=== PATIENT | male | born 1960 | race Caucasian/White ===

== ENCOUNTER → 2018-02-04 | Outpatient (CLI) | payer SELFPAY | LOC: US 12:13 | PROVIDERS: ATTEND Nurse Practitioner | DX: Z02.9 Encounter for administrative examinations, unspecified (principal) ==

== ENCOUNTER 2018-02-05 11:46 | Outpatient (RCR) | payer OTHER ==
[2018-02-05 12:14] LABS: INR 1.03
--- NOTE | 2018-02-07 14:58 | RADIOLOGY IMAGING REPORT ---
[place]AC[place] [facility] [place] NAME: Terrence Mcconnell : 1960 MR: [id number] V: [id number] EXAM DATE: ORDERING PHYSICIAN: BRENNAN PEDRAZA TECHNOLOGIST: Location: [facility] - [place] Patient: Terrence Mcconnell : 1960 Visit/Account:[id number] Date of Sevice: 02/07/2018 Examination: Ultrasound-guided left neck mass fine needle aspiration HISTORY: Palpable neck mass. COMPARISON: A prior outside facility CT scanner was reviewed. TECHNIQUE: The fine-needle aspiration procedure and the potential risks not limited to bleeding, pain , infection or acquiring a nondiagnostic specimen were discussed with the patient. His questions wer e answered and written, informed consent was given to proceed. Survey images were obtained of the left neck. Just posterior to the left submandibular gland, there is a large, complex cystic lesion within the neck soft tissues. This is located anterior to the ster nocleidomastoid muscle. This measures up to 3.4 x 2.9 x 2.0 cm in size. There is some peripheral no dularity and solid components. Majority of this appears cystic. This may represent a large cystic/n ecrotic lymph node. The skin overlying the lesion was marked and was then sterilely prepped and draped. 1% lidocaine was used for local anesthesia. 3 fine needle aspirates were obtained of the peripheral more solid-appearing margin of this cystic ma ss. The samples were given to a member of the pathology team for processing. Finally, a 20-gauge needle was inserted into the cystic portion of the mass and approximately 2.5 mL of cloudy yellow fluid was aspirated. This was sent for cytology. All needles were removed without complication. The skin was cleaned and a sterile bandage was applie d. IMPRESSION: 1. Successful left neck cystic mass fine-needle aspiration and aspiration utilizing continuous sonog raphic guidance. Report Dictated By: Dhiraj Holland at 02/07/2018 2:49 PM Report E-Signed By: Dhiraj Holland at 02/07/2018 2:54 PM WSN:[id number]
== END 2018-02-07 18:00 | disposition home or self-care (01) ==
LOC: US 11:46
PROVIDERS: ATTEND Otolaryngology
DX: R22.1 Localized swelling, mass and lump, neck (principal)
CPT/HCPCS: 10022; 36415; 76942; 85610; 88104; 88172

== ENCOUNTER 2018-04-10 00:53 | Day surgery (SDC) | payer OTHER ==
[~2018-04-10] VITALS: Ht 188 cm; Wt 83.9 kg
[2018-04-10] VITALS (9 sets, daily range): BP systolic 103–128; BP diastolic 72–86
[2018-04-10] MEDS ORDERED: DEXAMETHASONE SOD 4 MG/ML VIAL ONE (09:38)
[2018-04-10] MEDS ORDERED: PROPOFOL EMUL(*) 10MG/ML 20 ML 20 ML ONE (09:38)
[2018-04-10] MEDS ORDERED: METOCLOPRAMIDE 10 MG/2 ML SDV ONE (09:38)
[2018-04-10] MEDS ORDERED: LIDOCAINE MPF 1% 5 ML VIAL ONE (09:38)
[2018-04-10] MEDS ORDERED: fentaNYL CITR 100 MCG/2 ML AMP ONE (09:47)
[2018-04-10] MEDS ORDERED: ONDANSETRON 4 MG/2 ML VIAL ONE ×2 (10:07→15:21)
[2018-04-10] MEDS ORDERED: ROPIVACAINE 0.5% 20 ML VIAL ONE (10:53)
[2018-04-10] MEDS ORDERED: LIDO/EPI 1% MDV 1:100,000 20ML INFIL ONE (11:18)
[2018-04-10] MEDS ORDERED: ROCURONIUM BROM 10 MG/ML 10 ML ONE (11:45)
[2018-04-10] MEDS ORDERED: SUGAMMADEX SOD 200 MG/2 ML SDV ONE (13:25)
[2018-04-10] MEDS ORDERED: OXYC-854 PO (13:45)
[2018-04-10] MEDS ORDERED: DOCU-416 PO (13:45)
--- NOTE | 2018-04-10 13:48 | Short(Outpt) Discharge Summary ---
Discharge Summary Reason for Hosp/Final Diag: (1) Mass of left side of neck Status: Chronic Hospital Course & Plan: Left neck mass removed without problems. Departure Discharge to: Home, Self Care Discharge Instructions Home Meds Active Scripts Docusate Sodium (COLACE) 100 Mg Capsule, 1 CAP PO BID, #30 CAP 0 Refills TAKE WITH A FULL GLASS OF WATER Prov:LUIS F GUERRERO MD 04/10/18 Oxycodone Hcl/Acet 5/325 Mg (ENDOCET 5-325 TABLET) 1 Each Tablet, 1 TAB PO Q4H Y for PAIN, #20 TAB 0 Refills Prov:LUIS F GUERRERO MD 04/10/18 Follow up Referrals: General Surgery - 04/29/18 @ Surgery, General with Luis F Guerrero Md You have a follow up appointment scheduled with Dr. Guerrero on 04/29/18, at 4:00pm. Diet: Regular Activity: As Tolerated Special Instructions: You may remove the white surgical dressing on 04/12/18, then you can shower. After showering, leave the incision open to air but leave the steristrips in place until they fall off on their own. do not immerse the incision for 2 weeks. LUIS F GUERRERO MD Apr 10, 2018 13:48
--- NOTE | 2018-04-10 13:53 | Post Operative Progress Note ---
Post Operative Progress Note Date: Apr 10, 2018 Time: 13:47 Surgeon: William Dictation number: [id number] Anesthesia: GETA by Dr. De Paz Pre-Op Diagnosis: Left level II neck mass Post-Op Diagnosis: CEZAR Findings: C/W dx Procedure(s): Excision of deep left level II neck mass Specimen Removed:(May be N/A): Left neck mass sent for histopathology and flow cytometry Complications: None Fluids: See anesthesia record Estimated Blood Loss: Minimal Date OP Note Dictated: Apr 10, 2018 Time OP Note Dictated: 13:48 LUIS F GUERRERO MD Apr 10, 2018 13:53
--- NOTE | 2018-04-10 14:25 | OPERATIVE REPORT 1 ---
EVENT DATE: April 10, 2018 SURGEON: Tremayne Thomas MD ANESTHESIOLOGIST: Tremayne De Paz MD ANESTHESIA: General endotracheal anesthesia. PREOPERATIVE DIAGNOSIS Left neck mass. POSTOPERATIVE DIAGNOSIS Left neck mass. PROCEDURE PERFORMED Excision of deep level 2 left cervical neck mass. COMPLICATIONS None. CONDITION Stable. BLOOD LOSS Minimal. SPECIMENS Left neck mass sent for histopathology and flow cytometry. INDICATIONS This is a 57-year-old gentleman who presented to my office with a left neck mass. It had been present for several months and was getting bigger, and he had it biopsied where really they did an aspiration of a cyst as it had some fluid in it. They did not find any malignant cells in it, but it has not completely gone away, so he came to get my opinion about whether he should have it removed. Since it was a complex cyst with both solid and cystic components, I recommended to excise it to ensure that there is no cancer within it. DESCRIPTION OF PROCEDURE The patient was brought to the operating room and placed supine on the operating table. General endotracheal anesthesia was administered, and he was placed in a reclining beach chair configuration on the table with his head turned towards his right and his neck extended. His left neck was prepped and draped in a sterile fashion. Timeout was completed, and I injected the skin overlying the mass with 0.5% ropivacaine plain. I made a transverse incision in a skin crease right over the mass and dissected through the dermis and into the subcutaneous fat. I then divided the platysma muscle and went deeper into the deep cervical space, palpating the mass as I went. When I got down to the mass, I dissected completely around it and freed it up from surrounding structures and passed it off the field fresh to be sent to Pathology for histopathologic analysis and flow cytometry. I then irrigated and dried the wound and then closed the deep cervical fascia with interrupted 3-0 Vicryl sutures, and then platysma was closed with interrupted 3-0 Vicryl sutures. Then , the skin was closed with interrupted 3-0 Vicryl deep dermal sutures and 4-0 Monocryl running subcuticular suture. Skin was cleaned and dried, and Steri- Strips were applied, followed by a sterile surgical dressing. The patient was awakened, extubated in the operating room, and transported to the recovery room in stable condition having tolerated the procedure without any apparent problems. JOAQUIN
[2018-04-10] MEDS ORDERED: MIDAZOLAM 2 MG/2 ML VIAL IVP PRN (15:10)
[2018-04-10] MEDS ORDERED: ceFAZolin(*) 2GM/D5W 50ML 50 ML IVPB ONE (15:10)
[2018-04-10] MEDS ORDERED: LIDOCAINE/SOD BICARB 8.4% SYR ID ONE (15:10)
[2018-04-10] MEDS ORDERED: NORMOSOL R SOLN(*) 1000 ML BAG 1,000 ML IV PRN (15:10)
[2018-04-10] MEDS ORDERED: FAMOTIDINE 20 MG TAB PO ONE (15:10)
== END 2018-04-10 14:29 | disposition home or self-care (01) ==
LOC: OR 00:53
PROVIDERS: ATTEND Surgery
DX: C96.9 Malignant neoplasm of lymphoid, hematopoietic and related tissue, unspecified (principal)
CPT/HCPCS: 11622; 88305; J1100; J2405; J2704; J2765; J2795; J3010; 88184; 88185; 88189